=== PATIENT | female | born 1990 | race Two or more races ===

== ENCOUNTER 2018-05-22 20:45 | Emergency (ER) | payer SELFPAY | END 2018-05-22 21:57 | disposition home or self-care (01) | LOC: ER 20:45 | DX: K08.89 Other specified disorders of teeth and supporting structures (principal); K12.1 Other forms of stomatitis | CPT/HCPCS: 99283 ==

== ENCOUNTER 2020-05-20 07:17 | Emergency (ER) | payer SELFPAY ==
[~2020-05-20] VITALS: Ht 167.6 cm; Wt 82.0 kg
[~2020-05-20 07:17] MED LIST: AMOX500C PO
[2020-05-20] MEDS ORDERED: METOCLOPRAMIDE 10 MG TABLET. PO ONE (08:15)
[2020-05-20 08:28] LABS: SALIC < 2.8 mg/dL (2.8-20.0)
[2020-05-20 08:48] LABS: BILIRUBIN,URINE NEGATIVE (NEG); CLARITY,URINE CLEAR; COLOR,URINE YELLOW; NITRITE,URINE NEGATIVE (NEG); PH,URINE 5.5 (<5.0-8.0); PROTEIN,URINE NEGATIVE (NEG-TRACE); UROBILINOGEN,URINE 0.2 mg/dL (0.2 mg/dL)
[2020-05-20 08:53] LABS: U PREG PATIENT NEGATIVE (NEG)
[2020-05-20 08:57] LABS: BACTERIA,URINE 0 /HPF (0-FEW); RBC,URINE 0 /HPF (0-2); SQUAMOUS EPITHELIAL CELL,UR MANY /LPF; WBC,URINE 0 /HPF (0-4)
[2020-05-20] MEDS ORDERED: METO10TA81 PO (09:03)
--- NOTE | 2020-05-20 09:03 | PHYS DOC ---
Past Medical History Past Medical History: No Pertinent History Past Surgical History: No Surgical History Smoking Status: Never Smoker Alcohol Use: None Drug Use: None General Adult EDM: Chief Complaint: FATIGUE HPI: HPI: The history was obtained from the patient. Patient is a 21-year-old female with PMH HIV, methamphetamine use who presents with a chief complaint of fatigue. Patient states she was diagnosed with coronavirus 5 days ago. She states she is felt generally weak since then. She states she last used methamphetamine 1 day ago. She states she is felt very tired over the past 24 hours. She does think she may be withdrawing from methamphetamine. She notes a decrease in oral intake. She denies any chest pain or shortness of breath. She denies any objective fevers. She does note some hot and cold chills. Denies any syncope. She denies any dysuria, hematuria, or polyuria. She does note that she has been taking aspirin and ampicillin that she found at home to try to help with her fatigue. She states this was not prescribed to her. She states she is only taken 1-2 aspirin tablets over the past 2 days. She denies any headache or neck stiffness. States she has not been taking her HIV medication. No other complaints. Review of Systems: Review of Systems: Constitutional: Positive for fatigue and generalized weakness Eyes: Denies change in visual acuity. [] HENT: Denies nasal congestion or sore throat. [] Respiratory: Denies cough or shortness of breath. [] Cardiovascular: Denies chest pain or edema. [] GI: Denies abdominal pain, nausea, vomiting, bloody stools or diarrhea. [] : Denies dysuria. [] Musculoskeletal: Denies back pain or joint pain. [] Integument: Denies rash. [] Neurologic: Denies headache, focal weakness or sensory changes. [] Endocrine: Denies polyuria or polydipsia. [] Lymphatic: Denies swollen glands. [] Psychiatric: Denies depression or anxiety. [] Heart Score: Risk Factors: Risk Factors: DM, Current or recent (<one month) smoker, HTN, HLP, family history of CAD, obesity. Risk Scores: Score 0 - 3: 2.5% MACE over next 6 weeks - Discharge Home Score 4 - 6: 20.3% MACE over next 6 weeks - Admit for Clinical Observation Score 7 - 10: 72.7% MACE over next 6 weeks - Early Invasive Strategies Current Medications: Current Medications Medications (Trade) Dose Ordered Sig/Vernell Start Time Stop Time Status Last Admin Dose Admin Metoclopramide HCl (Reglan) 10 mg 1X ONCE 05/20/20 08:15 05/20/20 08:16 DC 05/20/20 08:28 10 MG Allergies: Allergies: Allergies Coded Allergies Type Severity Reaction Last Updated Verified No Known Drug Allergies 05/23/18 No Physical Exam: PE: Constitutional: Well developed, well nourished, no acute distress, non-toxic appearance. [] HENT: Normocephalic, atraumatic, bilateral external ears normal, oropharynx moist, no oral exudates, nose normal. [] Eyes: PERRLA, EOMI, conjunctiva normal, no discharge. [] Neck: Normal range of motion, no tenderness, supple, no stridor. [] Cardiovascular:Heart rate regular rhythm, no murmur [] Lungs & Thorax: Bilateral breath sounds clear to auscultation [] Abdomen: soft, no tenderness, no masses, no pulsatile masses. [] Skin: Warm, dry, no erythema, no rash. [] Back: No tenderness, no CVA tenderness. + 5/5 motor strength in dorsiflexion a nd plantarflexion of the great toes bilaterally. Sensation intact between the webbing of the first and second toes bilaterally. Extremities: No tenderness, no cyanosis, no clubbing, ROM intact, no edema. [] Neurologic: Alert and oriented X 3, normal motor function, normal sensory function, no focal deficits noted. [] Psychologic: Affect normal, judgement normal, mood normal. [] Current Patient Data: Labs: Laboratory Tests Test 05/20/20 07:54 05/20/20 08:25 Salicylates Level < 2.8 mg/dL (2.8-20.0) L Salicylate Last Dose Date Unknown Salicylate Last Dose Time Unknown Urine Collection Type Unknown Urine Color Yellow Urine Clarity Clear Urine pH 5.5 (<5.0-8.0) Urine Specific [place] 1.010 (1.000-1.030) Urine Protein Negative mg/dL (NEG-TRACE) Urine Glucose (UA) Negative mg/dL (NEG) Urine Ketones (Stick) Negative mg/dL (NEG) Urine Blood Negative (NEG) Urine Nitrite Negative (NEG) Urine Bilirubin Negative (NEG) Urine Urobilinogen Dipstick 0.2 mg/dL (0.2 mg/dL) Urine Leukocyte Esterase Negative (NEG) Urine RBC 0 /HPF (0-2) Urine WBC 0 /HPF (0-4) Urine Squamous Epithelial Cells Many /LPF Urine Bacteria 0 /HPF (0-FEW) Urine Test Negative (NEG) Vital Signs: Vital Signs Date Time Temp Pulse Resp B/P (MAP) Pulse Ox O2 Delivery O2 Flow Rate FiO2 05/20/20 07:24 99.9 107 17 122/87 (99) 100 Room Air 99.9 EKG: EKG: [] Radiology/Procedures: Radiology/Procedures: [] Course & Med Decision Making: Course & Med Decision Making Pertinent Labs and Imaging studies reviewed. (See chart for details) Patient is a 29-year-old female who presents with chief complaint of generalized fatigue and weakness. Initial vital signs unremarkable. She does note she was tested and was positive for richardson virus 5 days ago. Given she has no signs of lower respiratory complaints currently and normal vital signs chest x-ray will be deferred as well as EKG. Salicylate level was obtained and was negative. Urine negative. Patient was given oral antiemetics and has tolerated p.o. No indication for IV fluid replacement. She was encouraged to follow-up with her primary care physician regarding her HIV medications. She was encouraged on methamphetamine cessation. She will discharge home with a short course of antiemetics to help with oral intake. Return precautions discussed and understood. She is appropriate for discharge home at this time. COVID-19 CRITERIA: The patient was evaluated during the global COVID-19 pandemic, and that diagnosis was suspected/considered upon their initial presentation. Their evaluation, treatment and testing was consistent with current guidelines for patients who present with complaints or symptoms that may be related to COVID-19. Dragon Disclaimer: Dragon Disclaimer: This electronic medical record was generated, in whole or in part, using a voice recognition dictation system. Departure Departure Disposition: 01 HOME, SELF-CARE Condition: GOOD Referrals: NO PCP (PCP) Additional Instructions: You have been tested for or diagnosed with COVID-19. It is an infection caused by a new type of coronavirus. COVID-19 will cause cold-like or mild flu symptoms in most. It can cause more severe symptoms like problems breathing in some. There is no treatment for COVID-19. The body will clear the infection over time. Self-care will help to ease discomfort. Steps to Take: Self-Care Rest as needed. Healthy habits may help you feel better. Steps include: Choose healthy foods including fruits and vegetables. Drink water throughout the day. Get plenty of sleep each night. If you smoke, try to quit. It may ease breathing. Avoid alcohol. Keep Others Healthy The virus can spread to others. Droplets are released every time you sneeze or cough. The droplets can get into the mouth, nose, or eyes of people near you and lead to infection. To lower the chances of spreading COVID-19 to others: Stay at home until your doctor has said it is safe to leave. If you tested positive this will mean staying isolated until both of the following are true: At least 7 days have passed since the start of illness. You are free of fever for at least 72 hours without the use of medicine. During this time: - Avoid public areas, events, or transportation. Do not return to work or school until your doctor has said it is safe to do so. - Call ahead if you need to go to a medical center. Let them know you may have COVID-19. It will help them guide you where to go. They may also ask you to wear a facemask when you come to the office. - If you call for emergency medical services, let them know you may have COVID- 19. While at home: - Try to avoid close contact with others. Stay about 6 feet away. - If possible, spend most of your time in a separate room from others. - Use a face mask if you will be in close contact with others such as sharing a room or vehicle. - Have someone wipe down common surfaces in the home. Use household appliances sample maker every day on areas like doorknobs, counters, or sinks. - Cough or sneeze into a tissue. Throw the tissue away right after use. If a tissue is not available, cough or sneeze into your elbow. - Wash your hands often. Wash them after sneezing or coughing. Use soap and water and wash for at least 20 seconds. Alcohol based hand still cleaner tube can be used if soap and water is not available. - Do not prepare food for others. Avoid sharing personal items like forks, spoons, or toothbrushes. - Avoid close contact with pets while you are sick. There is no evidence of the virus passing to pets. This is a safety step until more is known about this virus. Isolation can be frustrating. Social interaction can help. Keep in touch with friends and family through phone and tech options. You can still interact with others in your home, just keep a safe distance of about 6 feet. Follow-up: Your doctors office will check in with you to see if there are any changes in your health. You may be asked to keep track of symptoms to share with them. They will also let you know when you are clear to be in public again. Problems to Look Out For: Contact your doctor if your recovery is not going as you expect. Get emergency care if you have problems such as: - Trouble breathing - Nonstop chest pain or pressure - Changes in awareness, confusion, or problems waking - Lips or face have bluish color - Worsening of symptoms If you think you have an emergency, call for emergency medical services right away. As taken from [facility] [address] [place] [address] [facility] [address] [place] [address] [facility] [address] [facility] [place] [address] [facility] [address] [place] [address] Replaced By [facility] [address] [place] [address] [facility] [address] [place] [address] [facility] [address] [place] [address] [facility] [place] [address] [place] [address] [facility] [address] [place] [address] [facility] Department [address] [place] [address] Scripts Metoclopramide Hcl (REGLAN) 10 Mg Tablet 1 TAB PO TID for 5 Days, #15 TAB 0 Refills before food and bedtime Prov: RADHA MONTANO DO 05/20/20 Justicifation of Admission Dx: Justifications for Admission: Justification of Admission Dx: N/A COVID-19 Assessment: COVID-19 Patient Risks: Age 65 or older: No Sign of co-morbidity: No Exp to person + for COVID: Yes Exp to PUI: No Travel from affected area: No Lower respiratory symptoms: No Fever: No Other: No PPE Use: Full PPE with N95 mask or PAPR: Yes RADHA MONTANO DO May 20, 2020 09:03
[2020-05-20 09:35] VITALS: BP 122/86
== END 2020-05-20 09:45 | disposition home or self-care (01) ==
LOC: ER 07:17
DX: R53.1 Weakness (principal); R53.83 Other fatigue; F15.90 Other stimulant use, unspecified, uncomplicated
CPT/HCPCS: 36415; 80329; 81001; 81025; 99283; G0480